=== PATIENT | female | born 1980 | race Two or more races ===

== ENCOUNTER 2021-08-18 18:13 | Inpatient (IN) | payer OTHER ==
[2021-08-18 18:52] VITALS: BMI 29.9
[2021-08-18] MEDS ORDERED: BISMUTH SUBSALICYLATE 524 MG/30 ML PO PRN (19:47)
[2021-08-18] MEDS ORDERED: MENTHOL/PHENOL 1 EACH UD MM PRN (19:47)
[2021-08-18] MEDS ORDERED: MAGNESIUM HYDROX 2400MG/30ML ORAL SUSPENSION 30 ML CUP PO PRN (19:47)
[2021-08-18] MEDS ORDERED: ACETAMINOPHEN 325 MG TABLET (FP) PO PRN ×2 (19:47)
[2021-08-18] MEDS ORDERED: MAG HYDROX/AL HYDROX/SIMETH 30 ML UNIT-DOSE CUP PO PRN (19:47)
[2021-08-18] MEDS ORDERED: MAGNESIUM CITRATE 300 ML BOTTLE PO PRN (19:47)
[2021-08-18] MEDS ORDERED: diazePAM 5 MG TABLET ONE (20:59)
[2021-08-18] MEDS: diazePAM 5 MG TABLET PO PRN (21:01)
[2021-08-18] MEDS: MELATONIN 5 MG TABLETS PO SCH (22:22)
[2021-08-18] MEDS: diazePAM 5 MG TABLET PO SCH (22:22)
[2021-08-18] MEDS: THIAMINE HCL 100 MG TABLET (FP) PO SCH (22:22)
[2021-08-18] MEDS: ONDANSETRON *ODT* 4 MG TABLET SL PRN (22:29)
[2021-08-19] MEDS: diazePAM 5 MG TABLET PO PRN ×3 (02:07→20:58)
[2021-08-19] MEDS: diazePAM 5 MG TABLET PO SCH ×4 (06:59→22:46)
[2021-08-19] MEDS: IBUPROFEN 400 MG TABLET (FP) PO PRN ×2 (07:01→16:54)
[2021-08-19] MEDS: METHOCARBAMOL 500 MG TABLET PO PRN ×3 (07:09→22:47)
[2021-08-19] MEDS: PRENATAL VITAMINS W/ FOLIC ACID TABLET (FP) PO SCH (11:03)
[2021-08-19 11:44] LABS: HEMATOCRIT 35.9 % (32.4-45.2); MCH 31.1 pg (25.7-33.7); MCHC 33.5 g/dl (32.0-36.0); MEAN CELL VOLUME 92.6 fl (80-96); MEAN PLT VOLUME 8.2 fl (7.5-11.1); PLATELET COUNT 250 10^3/uL (134-434); RBC 3.88 M/mm3 (3.60-5.2); RDW 16.9 % (11.6-15.6); WHITE BLOOD COUNT 5.3 K/mm3 (4.0-10.0)
[2021-08-19 11:58] LABS: CALCIUM 8.3 mg/dL (8.5-10.1)
[2021-08-19 11:59] LABS: ALBUMIN 3.4 g/dl (3.4-5.0); BLOOD UREA NITROGEN 10.3 mg/dL (7-18)
[2021-08-19 12:02] LABS: CREATININE 0.7 mg/dL (0.55-1.3)
[2021-08-19 12:03] LABS: BILIRUBIN,TOTAL 1.1 mg/dL (0.2-1); TOT PROT 7.4 g/dl (6.4-8.2)
[2021-08-19] MEDS ORDERED: cloNIDine HCL 0.1 MG TABLET PO PRN (15:46)
[2021-08-19] MEDS ORDERED: traZODone HCL 50 MG TABLET (FP) PO PRN (15:48)
[2021-08-19] MEDS: hydrOXYzine PAMOATE 25 MG CAPSULE (FP) PO PRN ×2 (15:51→21:00)
[2021-08-19] MEDS: CALCIUM CARBONATE 650 MG TABLET PO SCH (22:50)
[2021-08-19] MEDS: MELATONIN 5 MG TABLETS PO SCH (22:51)
[2021-08-19] MEDS: THIAMINE HCL 100 MG TABLET (FP) PO SCH (22:51)
[2021-08-20] MEDS ORDERED: diazePAM 5 MG TABLET PO SCH (06:00)
[2021-08-20] MEDS: diazePAM 5 MG TABLET PO SCH ×2 (07:05→13:34)
[2021-08-20] MEDS: hydrOXYzine PAMOATE 25 MG CAPSULE (FP) PO PRN ×2 (07:06→16:43)
[2021-08-20] MEDS: METHOCARBAMOL 500 MG TABLET PO PRN ×3 (07:06→19:51)
[2021-08-20] MEDS: ONDANSETRON *ODT* 4 MG TABLET SL PRN (07:10)
[2021-08-20] MEDS: PRENATAL VITAMINS W/ FOLIC ACID TABLET (FP) PO SCH (10:41)
[2021-08-20] MEDS: CALCIUM CARBONATE 650 MG TABLET PO SCH (10:43)
[2021-08-20] MEDS: diazePAM 5 MG TABLET PO PRN ×2 (10:45→16:43)
[2021-08-20] MEDS: IBUPROFEN 400 MG TABLET (FP) PO PRN (17:48)
[2021-08-20 18:22] VITALS: BP 140/84; PULSE 97; TEMP 96.9
[2021-08-21] MEDS ORDERED: diazePAM 5 MG TABLET PO SCH (06:00)
[2021-08-22] MEDS ORDERED: diazePAM 5 MG TABLET PO ONE (06:00)
== END 2021-08-20 20:01 | disposition home or self-care (01) | DRG 775 ==
LOC: YASAS 18:13 → Y3N 21:06
PROVIDERS: ADMIT Allergy & Immunology; ATTEND Allergy & Immunology
PROC: HZ2ZZZZ Detoxification Services for Substance Abuse Treatment (ICD-10-PCS; principal; 2021-08-18)
DX: F10.230 Alcohol dependence with withdrawal, uncomplicated (principal); F12.20 Cannabis dependence, uncomplicated; Z88.0 Allergy status to penicillin
CPT/HCPCS: 36415; 80053; 81025; 85027; 86780; C9803; J0735; Q0162; U0003; U0005